=== PATIENT | male | born 2000 | race Caucasian/White ===

== ENCOUNTER 2022-12-18 07:42 | Outpatient (REF) | payer OTHER, SELFPAY ==
--- NOTE | ~2022-12-18 | CT_ITS ---
EXAMINATION: CT ANKLE WITHOUT CONTRAST, LEFT CLINICAL INFORMATION: Left lower leg fracture. COMPARISON: None. TECHNIQUE: Contiguous axial CT images of the left ankle were obtained without contrast. Sagittal and coronal reformats were provided and reviewed. This CT examination was performed using dose optimization techniques as appropriate, variously including the following: *Automated exposure control *Adjustment of mA and/or kV according to patient size (this includes techniques or standardized protocols for targeted exams where dose is matched to indication/reason for exam; i.e. extremities or head) *Use of iterative reconstruction technique. DOSE: 141 mGy-cm. FINDINGS: Minimally displaced, oblique fracture through the anterior aspect of the tibial plafond which contacts the anterior articular surface. Overall, the fracture fragment measures up to 2.4 cm in ML dimension and 1.2 cm in craniocaudal dimension with a fracture gap and cortical step off along the articular surface measuring up to 0.1 cm. No additional fracture or dislocation. The ankle mortise is maintained. Mild tibiotalar joint space narrowing with tiny marginal osteophytes. No talar osteochondral lesion. No concerning lytic or blastic osseous lesion. No abnormal soft tissue mass or fluid collection. The visualized flexor and extensor tendons are intact. No significant joint effusion. CT/CT ankle LT wo IV con IMPRESSION: 1. Nondisplaced, oblique fracture through the anterior aspect of the tibial plafond which contacts the anterior articular surface with a fracture gap measuring up to 0.1 cm. 2. Mild tibiotalar osteoarthritis.
== END 2022-12-18 07:43 | disposition home or self-care (01) ==
LOC: HO.CT 07:42
PROVIDERS: Visit Provider Family Medicine Sports Medicine
DX: S82.892G Other fracture of left lower leg, subsequent encounter for closed fracture with delayed healing (principal)
CPT/HCPCS: 73700